=== PATIENT | female | born 1940 | race Caucasian/White ===

== ENCOUNTER 2017-11-27 19:57 | Emergency (ER) | payer MEDICARE, MEDICAID ==
[~2017-11-27 19:57] MED LIST: ISOVUE-370 76%-LOCM 1 ML ONE
--- NOTE | 2017-11-27 20:33 | RAD ---
TWO VIEW CHEST: 11/27/17 HISTORY: Fever and cough. Lungs appear clear. No infiltrate identified. Heart and mediastinum unremarkable. Vascular markings a re normal. IMPRESSION: No evidence of acute infiltrate. POS: [facility]
[2017-11-27 21:13] LABS: Bilirubin Small (Negative); Blood, Urine Moderate (Negative); Clarity CLEAR (Clear); Glucose, Urine (Dipstick) Negative (Negative); Leukocyte Small (Negative); Nitrite Negative (Negative); Protein, Urine (Dipstick) 30 mg/dL (Neg-Trace); Specific Gravity, Urine 1.025 (1.002-1.036); pH, Urine 6.5 (5.0-9.0)
[2017-11-27 21:15] LABS: Bacteria/HPF Rare-Few HPF (None Seen); Hyaline Casts/LPF 0-3 HYALINE CAST LPF (0-3 Hyaline); RBC/HPF 21-50 HPF (0-3); Squamous Epithelial 0-3 HPF (0-3)
[2017-11-27 21:44] LABS: #Lymphocytes 2.2 thou/uL (1.20-3.40); #Monocytes 0.6 thou/uL (0.11-0.59); #Neutrophils 10.4 thou/uL (1.40-6.50); %Basophils 0.2 % (0.0-1.0); %Eosinophils 0.3 % (0.0-10.0); %Lymphocytes 16.6 % (21.0-51.0); %Monocytes 4.8 % (0.0-10.0); Hemoglobin 13.2 g/dL (12.0-16.0); Mean Corpuscular HGB CONC 32.8 g/dL (32.0-36.0); Mean Corpuscular Volume 97.5 fl (81.0-99.0); Mean Platelet Volume 7.4 fL (7.4-10.4); Platelet Count 250 thou/uL (130-400); RBC Distribution Width 11.5 % (11.5-14.5); Red Blood Cell (RBC) Count 4.12 mill/uL (4.20-5.40); White Blood Cell (WBC) Count 13.3 thou/uL (4.8-10.8)
[2017-11-27 22:07] LABS: ALT (SGPT) 9 U/L (8-55); AST (SGOT) 13 U/L (5-34); Albumin 3.8 g/dL (3.4-4.8); Alkaline Phosphatase 75 U/L (40-150); Anion Gap 13 mmol/L (10-20); BUN (Urea Nitrogen) 10 mg/dL (9.8-20.1); Bilirubin, Total 1.2 mg/dL (0.2-1.2); Calc. Creatinine Clearance 0 mL/min (70-130); Calcium 9.1 mg/dL (7.8-10.44); Carbon Dioxide 25 mmol/L (23-31); Chloride 105 mmol/L (98-107); Estimated GFR-MDRD 81; Globulin 2.8 g/dL (2.4-3.5); Glucose 126 mg/dL (83-110); Protein, Total 6.6 g/dL (6.0-8.3); Sodium 139 mmol/L (136-145)
--- NOTE | 2017-11-27 23:04 | CT ---
CT ABDOMEN AND PELVIS WITH CONTRAST: 11/27/17 Multiple axial tomograms obtained through the abdomen and pelvis with IV enhancement. HISTORY: Abdominal pain. Fever and cough. Lung bases are clear. Liver, spleen and pancreas unremarkable. There is mild biliary duct prominence; however, the patient is post cholecystectomy and the biliary duct prominence is most likely related to the postcholecystec kulwant status. Adrenal glands and kidneys are unremarkable. There are small cystic lesions seen in bot h kidneys. No hydronephrosis. The urinary bladder is contracted. Small bowel loops are normal in appearance. Appendix appears normal. The colon is poorly distended. A marcelo is normal caliber. Images through the pelvis show unremarkable appearing uterus and adnexa. IMPRESSION: No acute abnormality. POS: [facility]
== END 2017-11-28 00:21 | disposition home or self-care (01) ==
LOC: ERS 19:57
DX: N39.0 Urinary tract infection, site not specified (principal); I10 Essential (primary) hypertension; F31.9 Bipolar disorder, unspecified; F17.210 Nicotine dependence, cigarettes, uncomplicated; Z71.6 Tobacco abuse counseling
CPT/HCPCS: 36415; 71046; 74177; 80053; 81003; 81015; 85025; 87086; 96361; 96374; 99406; J0696